=== PATIENT | female | born 1990 | race Caucasian/White ===

== ENCOUNTER 2018-09-06 02:21 | Emergency (ER) | payer SELFPAY ==
[~2018-09-06] VITALS: Ht 160 cm; Wt 99.8 kg
[2018-09-06] MEDS ORDERED: DIPHENHYDRAMINE 25MG CAPSULE PO ONE (09:00)
[2018-09-06 10:35] VITALS: BP 110/68
== END 2018-09-06 10:36 | disposition home or self-care (01) ==
LOC: ER 06:30
DX: B34.9 Viral infection, unspecified (principal); R03.0 Elevated blood-pressure reading, without diagnosis of hypertension
CPT/HCPCS: 71045; 81025; 87070; 87430; 87804; 99284; Q0163